=== PATIENT | male | born 1965 | race Two or more races ===

== ENCOUNTER → 2017-05-23 | Outpatient (CLI) | payer OTHER ==
[~2017-05-23] MED LIST: AMLO-511 PO
== END | disposition home or self-care (01) ==
LOC: MSR 14:09
PROVIDERS: ATTEND Internal Medicine
DX: Z02.1 Encounter for pre-employment examination (principal); R76.11 Nonspecific reaction to tuberculin skin test without active tuberculosis
CPT/HCPCS: 86706; 86735; 86762; 86765; 86787

== ENCOUNTER 2017-07-02 10:20 | Emergency (ER) | payer OTHER ==
[2017-07-02] MEDS ORDERED: AMLO-511 PO (11:04)
[2017-07-02 11:18] VITALS: BP 159/97
== END 2017-07-02 11:32 | disposition home or self-care (01) ==
LOC: EMS 10:21
DX: S00.93XA Contusion of unspecified part of head, initial encounter (principal); I10 Essential (primary) hypertension; Y04.0XXA Assault by unarmed brawl or fight, initial encounter; Y93.89 Activity, other specified; Y92.89 Other specified places as the place of occurrence of the external cause; Y99.8 Other external cause status
CPT/HCPCS: 99283